=== PATIENT | female | born 1990 | race Caucasian/White ===

== ENCOUNTER 2016-10-11 18:30 | Emergency (ER) | payer OTHER ==
[~2016-10-11] VITALS: Ht 162.6 cm; Wt 59.0 kg
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
[~2016-10-11 18:30] MED LIST: AMOXICILLIN PO; BACTRIM DS TABL1 TA1 PO; BIRTH CONTROL IMPLAN; FLEXERIL PO; GUAIFENESIN W-120 ML PO; IMITREX PO; MAGIC MOUTHWASH; NAPROXEN PO; NO MEDICATIONS; PHENERGAN PO; PREDNISONE PO; PREMARIN PO; PROMETHAZINE; PYRIDIUM PO; ROBITUSSIN COUG1 CAP PO; SUDAFED PO; YASMIN 28 TABLE1 TAB PO; ZYRTEC-D T1 TAB.SR . PO
== END 2016-10-11 20:08 | disposition home or self-care (01) ==
LOC: SED 18:30
DX: S60.221A Contusion of right hand, initial encounter (principal); S60.211A Contusion of right wrist, initial encounter; F17.210 Nicotine dependence, cigarettes, uncomplicated; Z88.1 Allergy status to other antibiotic agents; Z88.5 Allergy status to narcotic agent; Y04.0XXA Assault by unarmed brawl or fight, initial encounter; Y92.009 Unspecified place in unspecified non-institutional (private) residence as the place of occurrence of the external cause
CPT/HCPCS: 29125; 73110; 73130; 99283